=== PATIENT | female | born 1985 | race African-American/Black ===

== ENCOUNTER 2019-07-22 13:46 | Emergency (ER) | payer MEDICAID ==
[~2019-07-22] VITALS: Ht 162.6 cm; Wt 70.0 kg
[2019-07-22] MEDS ORDERED: IBUPROFEN 600MG TABLET PO ONE (15:15)
[2019-07-22 16:00] VITALS: BP 121/80
== END 2019-07-22 16:15 | disposition home or self-care (01) ==
LOC: ER 13:46
DX: M79.18 Myalgia, other site (principal); J45.909 Unspecified asthma, uncomplicated; V43.62XA Car passenger injured in collision with other type car in traffic accident, initial encounter; Y93.89 Activity, other specified; Y92.488 Other paved roadways as the place of occurrence of the external cause
CPT/HCPCS: 81025; 99283